=== PATIENT | male | born 1970 | race Caucasian/White ===

== ENCOUNTER 2022-01-11 23:29 | Emergency (ER) | payer MEDICARE, MEDICAID ==
[~2022-01-11] VITALS: Ht 185.4 cm; Wt 113.6 kg
[2022-01-11 23:39] VITALS: BP 197/125
--- NOTE | 2022-01-12 01:32 | NUR ---
PT REFUSED LL LAB WORK. PT REQUESTED TO SIGN OUT AMA. INFORMED
== END 2022-01-12 01:34 | disposition left against medical advice (07) ==
LOC: ER 23:31
DX: R07.9 Chest pain, unspecified (principal); I10 Essential (primary) hypertension; Z88.0 Allergy status to penicillin
CPT/HCPCS: 93005; 99283